=== PATIENT | female | born 1980 | race Caucasian/White ===

== ENCOUNTER 2018-06-09 13:24 | Emergency (ER) | payer BC ==
[2018-06-09] MEDS: SOD CHLORIDE 0.9% 1,000 ML IV (13:54)
== END 2018-06-09 14:24 | disposition left against medical advice (07) ==
LOC: E/R 13:24
DX: R42 Dizziness and giddiness (principal)
CPT/HCPCS: 93005; 99283; 99283-25